=== PATIENT | female | born 1945 | race Caucasian/White ===

== ENCOUNTER → 2017-07-31 09:46 | Outpatient (CLI) | payer MEDICARE, SELFPAY ==
[2017-07-31 10:33] LABS: Cholesterol 225 mg/dL (140-199); Glucose 118 mg/dL (80-110); HDL Cholesterol 68 mg/dL (40-60); LDL Cholesterol Calculated 142 mg/dL (<100); Triglycerides 77 mg/dL (35-150)
== END ==
PROVIDERS: PCP Internal Medicine; Visit Provider Internal Medicine
DX: E03.9 Hypothyroidism, unspecified (principal); R73.01 Impaired fasting glucose; E78.5 Hyperlipidemia, unspecified
CPT/HCPCS: 36415; 80061; 82947; 83036; 84439; 84443

== ENCOUNTER → 2018-10-28 13:00 | Outpatient (CLI) | payer MEDICARE, SELFPAY ==
--- NOTE | 2018-10-28 | DI.RAD.S_ITS ---
PROCEDURE: XR HIP W PEL IF DONE RT 2V INDICATIONS: RIGHT HIP PAIN TECHNIQUE: 2 views of the hip were acquired. COMPARISON: None. FINDINGS: Bones: No fractures or dislocations. No suspicious bony lesions. The visualized pelvic ring appears intact. Scattered degenerative subchondral sclerosis and spurring. Minimal joint space narrowing Soft tissues: No suspicious soft tissue calcifications or masses. IMPRESSION: Mild right hip joint degeneration. Dictated by: Kishan Duran M.D. on 10/28/2018 at 13:43 Approved by: Kishan Duran M.D. on 10/28/2018 at 13:44
== END ==
PROVIDERS: PCP Internal Medicine; Visit Provider Internal Medicine
DX: M25.551 Pain in right hip (principal); M16.11 Unilateral primary osteoarthritis, right hip
CPT/HCPCS: 73502

== ENCOUNTER → 2018-11-04 13:10 | Outpatient (CLI) | payer MEDICARE, SELFPAY ==
--- NOTE | 2018-11-04 | DI.MRI.S_ITS ---
PROCEDURE: MR HIP RT WO CON INDICATIONS: Pain in right hip TECHNIQUE: Noncontrast coronal T1 spin echo and STIR through the bony pelvis. Coronal and axial T2 fast spin echo with fat saturation, sagittal T1 spin echo, and oblique axial T2 fast spin echo with fat saturation through the hip. COMPARISON: [facility], CR, XR HIP W PEL IF DONE RT 2V, 10/28/2018, 13:01. FINDINGS: Image quality: Excellent. Bones and joints: No acute fracture or focal osseous destruction. Levocurvature of the visualized lower lumbar spine and diffuse spondylosis. Facet arthropathy. Mild bilateral hip degeneration. Tendons and ligaments: Marked thickening, T2 hyperintensity/edema and partial tear of the gluteus medius and minimus tendons. There is stump-like appearance, which could reflect high-grade partial versus complete rupture, seen on image 10 series 4 although technically indeterminate. No definite asymmetric muscle atrophy. The iliopsoas tendon appears intact, without adjacent bursal fluid collections or evidence for impingement syndrome. The origin of the hamstring tendon is intact at the ischial tuberosity, as well as the associated sacrotuberous ligament. The straight and reflected heads of the rectus femoris muscle origin appear intact, as well as the conjoint tendon. The ligamentum teres appears intact where visualized. Labrum and cartilage: The acetabular labrum appears intact in the absence of intra-articular contrast. Cartilage surface of the femoral head appears of normal thickness. The alpha angle of the femur is within normal limits at less than 55 degrees. Soft tissues: Visualized muscles demonstrate normal bulk and internal signal. Quadratus femoris muscle demonstrates no internal edema to suggest ischiofemoral impingement. The proximal sciatic neurovascular bundle appears normal adjacent to the hamstring tendons. No free pelvic fluid. Bladder wall thickness is normal. Genitourinary structures and bowel loops appear normal where visualized. Incidental colonic diverticulosis. 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 Lower lumbar spondylosis and levoscoliosis. Dictated by: Kishan Duran M.D. on 11/04/2018 at 14:57 Approved by: Kishan Duran M.D. on 11/04/2018 at 15:16
== END ==
PROVIDERS: PCP Internal Medicine; Visit Provider Internal Medicine
DX: M25.551 Pain in right hip (principal); S76.011A Strain of muscle, fascia and tendon of right hip, initial encounter; M47.816 Spondylosis without myelopathy or radiculopathy, lumbar region; M41.86 Other forms of scoliosis, lumbar region; M16.0 Bilateral primary osteoarthritis of hip
CPT/HCPCS: 73721

== ENCOUNTER → 2019-12-08 13:37 | Outpatient (ROUT) | payer MEDICARE, SELFPAY ==
[2019-12-08 14:01] LABS: Alanine Aminotransferase 18 IU/L (<35); Albumin 4.2 g/dL (3.5-5.0); Albumin Globulin Ratio 1.6 (1.0-2.8); Alkaline Phosphatase 76 U/L (38-126); Aspartate Aminotransferase 22 IU/L (14-36); BUN Creatinine Ratio 38.2 (6-22); Bilirubin Total 0.5 mg/dL (0.2-1.3); Blood Urea Nitrogen 21 mg/dL (7-17); Carbon Dioxide 33 mmol/L (22-32); Chloride 101 mmol/L (98-107); Cholesterol 205 mg/dL (140-199); Estimated Glomerular Filt Rate > 60.0 mL/min (>60); Globulin 2.7 g/dL (1.7-4.1); Glucose 118 mg/dL (80-110); HDL Cholesterol 58 mg/dL (40-60); HEMOLYSIS < 15 (0-50); LDL Cholesterol Calculated 124 mg/dL (<100); Potassium 4.6 mmol/L (3.4-5.1); Sodium 138 mmol/L (137-145); Total Protein 6.9 g/dL (6.3-8.2); Triglycerides 116 mg/dL (35-150)
[2019-12-08 14:06] LABS: Hemoglobin A1C% w Est Avg Glu 6.3 % (4.0-6.0)
[2019-12-08 14:32] LABS: TSH w/ Reflex to FT4 0.66 uIU/mL (0.47-4.68)
== END ==
PROVIDERS: PCP Internal Medicine; Visit Provider Internal Medicine
DX: E78.5 Hyperlipidemia, unspecified (principal); E03.9 Hypothyroidism, unspecified; R73.01 Impaired fasting glucose
CPT/HCPCS: 80053; 80061; 83036; 84443

== ENCOUNTER → 2020-05-17 08:37 | Outpatient (CLI) | payer MEDICARE, SELFPAY ==
[2020-05-17 10:15] LABS: Alanine Aminotransferase 13 IU/L (<35); Albumin Globulin Ratio 1.5 (1.0-2.8); Alkaline Phosphatase 73 U/L (38-126); Aspartate Aminotransferase 19 IU/L (14-36); BUN Creatinine Ratio 28.3 (6-22); Bilirubin Total 0.4 mg/dL (0.2-1.3); Blood Urea Nitrogen 17 mg/dL (7-17); Calcium 10.2 mg/dL (8.4-10.2); Carbon Dioxide 29 mmol/L (22-32); Chloride 100 mmol/L (98-107); Cholesterol 172 mg/dL (140-199); Estimated Glomerular Filt Rate > 60.0 mL/min (>60); Globulin 2.6 g/dL (1.7-4.1); Glucose 113 mg/dL (80-110); HDL Cholesterol 57 mg/dL (40-60); HEMOLYSIS < 15 (0-50); LDL Cholesterol Calculated 102 mg/dL (<100); Potassium 4.1 mmol/L (3.4-5.1); Sodium 135 mmol/L (137-145); Total Protein 6.6 g/dL (6.3-8.2); Triglycerides 67 mg/dL (35-150)
== END ==
PROVIDERS: PCP Internal Medicine; Referring Provider Internal Medicine; Visit Provider Internal Medicine
DX: I10 Essential (primary) hypertension (principal)
CPT/HCPCS: 36415; 80053; 80061

== ENCOUNTER → 2021-04-03 16:13 | Outpatient (CLI) | payer MEDICARE, SELFPAY | PROVIDERS: PCP Internal Medicine; Visit Provider Nurse Practitioner Family | DX: R30.0 Dysuria (principal) | CPT/HCPCS: 87077; 87086; 87186 ==

== ENCOUNTER → 2022-09-25 10:24 | Outpatient (CLI) | payer MEDICARE, SELFPAY ==
[2022-09-25 11:31] LABS: Hematocrit 40.6 % (36-46); Hemoglobin 13.9 g/dL (12.0-16.0); Mean Corpuscular HGB Conc 34.1 % (30-36); Mean Corpuscular Hemoglobin 28.9 PG (26-34); Mean Corpuscular Volume 84.6 fL (80-100); Platelet Count 324 X10^3/uL (150-400); Red Cell Distribution Width 12.8 % (11.6-14.8)
[2022-09-25 12:05] LABS: Alanine Aminotransferase 23 IU/L (<35); Albumin 4.3 g/dL (3.5-5.0); Albumin Globulin Ratio 1.5 (1.0-2.8); Alkaline Phosphatase 73 U/L (38-126); Aspartate Aminotransferase 26 IU/L (14-36); BUN Creatinine Ratio 31.6 (6-22); Bilirubin Total 0.7 mg/dL (0.2-1.3); Blood Urea Nitrogen 18 mg/dL (7-17); Calcium 9.5 mg/dL (8.4-10.2); Carbon Dioxide 30 mmol/L (22-32); Chloride 100 mmol/L (98-107); Cholesterol 132 mg/dL (140-199); Estimated Glomerular Filt Rate > 60 mL/min (>60); Globulin 2.9 g/dL (1.7-4.1); Glucose 115 mg/dL (80-110); HDL Cholesterol 55 mg/dL (40-60); HEMOLYSIS < 15 (0-50); LDL Cholesterol Calculated 64 mg/dL (<100); Potassium 4.2 mmol/L (3.4-5.1); Sodium 135 mmol/L (137-145); Total Protein 7.2 g/dL (6.3-8.2); Triglycerides 66 mg/dL (35-150)
[2022-09-25 12:26] LABS: TSH w/ Reflex to FT4 0.08 uIU/mL (0.47-4.68)
[2022-09-25 13:31] LABS: Free T4, Direct Thyroxine 1.88 ng/dL (0.78-2.19)
[2022-09-26 06:07] LABS: Labcorp Hemoglobin (Hb) A1c 6.6 % (4.8-5.6)
== END ==
PROVIDERS: PCP Internal Medicine; Referring Provider Internal Medicine; Visit Provider Internal Medicine
DX: E03.9 Hypothyroidism, unspecified (principal); E78.2 Mixed hyperlipidemia; I10 Essential (primary) hypertension; I25.10 Atherosclerotic heart disease of native coronary artery without angina pectoris; I49.1 Atrial premature depolarization; R73.01 Impaired fasting glucose
CPT/HCPCS: 36415; 80053; 80061; 83036; 84439; 84443; 85027

== ENCOUNTER → 2023-04-01 07:22 | Outpatient (CLI) | payer MEDICARE, SELFPAY ==
[2023-04-01 08:10] LABS: BUN Creatinine Ratio 29.2 (6-22); Blood Urea Nitrogen 19 mg/dL (7-17); Calcium 9.9 mg/dL (8.4-10.2); Carbon Dioxide 30 mmol/L (22-32); Chloride 97 mmol/L (98-107); Cholesterol 151 mg/dL (140-199); Estimated Glomerular Filt Rate > 60 mL/min (>60); Glucose 122 mg/dL (80-110); HDL Cholesterol 58 mg/dL (40-60); HEMOLYSIS < 15 (0-50); LDL Cholesterol Calculated 73 mg/dL (<100); Potassium 4.1 mmol/L (3.4-5.1); Sodium 134 mmol/L (137-145); Triglycerides 101 mg/dL (35-150)
[2023-04-01 08:38] LABS: TSH w/ Reflex to FT4 3.14 uIU/mL (0.47-4.68)
[2023-04-01 11:11] LABS: Creatinine Urine Random 66.3 mg/dL
[2023-04-01 11:16] LABS: Microalbumi Creatinin Ratio Ur 63.3 ug/mg CR (<30); Microalbumin Urine Random 4.2 mg/dL (0-1.6)
[2023-04-03 11:26] LABS: x Labcorp Estim. Avg Glu (eAG) 126 mg/dL (.)
== END ==
PROVIDERS: PCP Internal Medicine; Referring Provider Internal Medicine; Visit Provider Internal Medicine
DX: E03.9 Hypothyroidism, unspecified; R73.01 Impaired fasting glucose; E78.2 Mixed hyperlipidemia
CPT/HCPCS: 36415; 80048; 80061; 82043; 82570; 83036; 84443

== ENCOUNTER → 2024-01-18 11:16 | Outpatient (CLI) | payer MEDICARE, SELFPAY ==
[2024-01-18 11:56] LABS: Hemoglobin A1C% w Est Avg Glu 6.1 % (4.0-6.0)
[2024-01-18 12:12] LABS: BUN Creatinine Ratio 31.7 (6-22); Blood Urea Nitrogen 20 mg/dL (7-17); Calcium 9.6 mg/dL (8.4-10.2); Carbon Dioxide 30 mmol/L (22-32); Chloride 100 mmol/L (98-107); Estimated Glomerular Filt Rate > 60 mL/min (>60); Glucose 119 mg/dL (80-110); HEMOLYSIS < 15 (0-50); Potassium 4.2 mmol/L (3.4-5.1); Sodium 134 mmol/L (137-145)
== END ==
PROVIDERS: PCP Internal Medicine; Referring Provider Internal Medicine; Visit Provider Internal Medicine
DX: R73.01 Impaired fasting glucose (principal); E03.9 Hypothyroidism, unspecified; I10 Essential (primary) hypertension
CPT/HCPCS: 36415; 80048; 83036; 84443

== ENCOUNTER → 2024-04-13 12:35 | Outpatient (CLI) | payer MEDICARE, SELFPAY ==
--- NOTE | 2024-04-13 12:36 | DI.RAD.S_ITS ---
PROCEDURE: XR DEXA AXIAL SKELETON INDICATIONS: osteopenia COMPARISON: None. FINDINGS: Lumbar Spine: Bone mineral density 0.893 g/cm2, T score -1.4, previously -0.9. Left Femoral Neck: Bone mineral density 0.682 g/cm2, T score -1.5. Left Hip: Bone mineral density 0.763 g/cm2, T score -1.5, previously -0.2. Fracture Risk Calculation (when applicable): 10-year fracture risk of a major osteoporotic fracture 13 percent and of a hip fracture 3 percent. (T score greater or equal to -1.0 to: NORMAL) (T score from -1.1 to -2.4: OSTEOPENIA) (T score less than or equal to -2.5: OSTEOPOROSIS) IMPRESSION: Osteopenia. Follow-up guidelines as follows: Osteoporosis: Consider a repeat DEXA and Vertebral Fracture Assessment (VFA) exam in 2 years or sooner if medically necessary, to reassess this patient's status. Osteopenia: Consider a repeat DEXA in 2-3 years to reassess this patient's status, or if there is a new clinical indication. Normal: Consider a repeat DEXA in 5 years or sooner, or if there is a new clinical indication. All treatment decisions require clinical judgment and consideration of individual patient factors, including patient preferences, comorbidities, previous drug use, risk factors not captured in the FRAX model (e.g., frailty, falls, vitamin D deficiency, increased bone turnover, interval significant decline in bone density ) and possible under- or over-estimation of fracture risk by FRAX. In addition, the NOF Guide recommends that FDA-approved medical therapies be considered in postmenopausal women and men age >= 50 years with a: * Hip or vertebral (clinical or morphometric) fracture * T-score of <=-2.5 at the spine or hip * Ten-year fracture probability by FRAX of >= 3% for hip fracture or >=20% for major osteoporotic fracture. Dictated by: Bill Asif M.D. on 04/13/2024 at 16:46 Approved by: Bill Asif M.D. on 04/13/2024 at 16:47
== END ==
PROVIDERS: PCP Internal Medicine; Referring Provider Internal Medicine; Visit Provider Internal Medicine
DX: M85.89 Other specified disorders of bone density and structure, multiple sites (principal)
CPT/HCPCS: 77080

== ENCOUNTER 2024-05-02 09:00 | Day surgery (SDC) | payer MEDICARE, SELFPAY ==
--- NOTE | 2024-05-02 09:38 | EKG_ITS ---
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
[2024-05-02] MEDS: LACTATED RINGERS 1,000 ML 42 ML IV ×2 (09:43→10:00)
--- NOTE | 2024-05-02 09:53 | PM.HP.IH.1 ---
History of Present Illness History of Present Illness Date Patient Seen: 05/02/24 Chief complaint: Screening Colonoscopy [facility] Medical History Acquired hypothyroidism Allergic rhinitis Asthma, mild intermittent Coronary artery disease Essential hypertension Generalized anxiety disorder History of breast cancer Impaired fasting glucose Insomnia Mixed hyperlipidemia PAC (premature atrial contraction) Primary osteoarthritis involving multiple joints Social History details: (Bill/Max - Lewy body dementia). Smoking Status: Never smoker Meds Home Medications and Allergies Home Medications Medication Instructions Recorded Confirmed Type fluticasone propionate 50 1 spray intranasal QDAY ##0 11/17/16 04/05/24 History mcg/actuation nasal spray,suspension (Flonase Allergy Relief) cholecalciferol (vitamin D3) 25 25 mcg PO DAILY 09/25/22 04/05/24 History mcg (1,000 unit) capsule fluticasone propionate 45 2 inh inhalation BID #36 grams 09/25/22 04/05/24 Rx mcg-salmeterol 21 mcg/actuation HFA inhaler (Advair HFA) metoprolol succinate 25 mg 25 mg PO DAILY 02/27/23 04/05/24 History tablet,extended release 24 hr aspirin 81 mg capsule 81 mg PO DAILY 03/30/23 04/05/24 History doxylamine succinate 25 mg tablet 12.5 mg PO BEDTIME PRN 03/30/23 04/05/24 History melatonin 10 mg capsule 10 mg PO BEDTIME PRN 03/30/23 04/05/24 History sodium chloride 2 % eye drops 1 drp EYE-BOTH QID PRN 03/30/23 04/05/24 History sodium chloride 5 % eye ointment 1 applic EYE-BOTH BEDTIME PRN 03/30/23 04/05/24 History levothyroxine 100 mcg tablet 100 mcg PO DAILY #90 tabs 07/23/23 04/05/24 Rx escitalopram oxalate 5 mg tablet 5 mg PO DAILY #90 tabs 08/24/23 04/05/24 Rx (Lexapro) montelukast 10 mg tablet 10 mg PO DAILY #90 tabs 10/05/23 04/05/24 Rx Ventolin HFA 90 mcg/actuation 2 puff inhalation Q4-6H PRN 01/21/24 04/05/24 Rx aerosol inhaler (albuterol sulfate) shortness of breath or wheezing #18 grams rosuvastatin 20 mg tablet 20 mg PO DAILY 04/05/24 04/05/24 History sodium,potassium,mag sulfates 17.5 See Rx Instructions PO .COMPLEX 04/20/24 Rx gram-3.13 gram-1.6 gram oral soln #354 mL (Suprep Bowel Prep Kit) Allergies Allergy/AdvReac Type Severity Reaction Status Date / Time lodine AdvReac Severe worsening Uncoded 05/02/24 09:35 asthma symptoms Exam Narrative Exam Narrative: Oropharynx free of lesions Chest clear to auscultation percussion Cardiac exam reveals no S3 or murmur Assessment & Plan Assessment & Plan narrative: Screening colonoscopy. Risks, benefits, alternatives have been explained. Time-Based Coding :: [TOTAL MINUTES] spent with patient and on the chart (including review of chart, obtaining history, exam, reviewing outside data, placing orders, documenting exam and treatment plan, and counseling patient) on [DATE]. [employer]ceiving [employer] Document charge(s): No
--- NOTE | 2024-05-02 09:54 | PM.OP.COLON ---
Operative Date/Time/Diagnoses Date of procedure: 05/02/24 Pre-op diagnosis: See indication and findings Procedure & Clinicians Study performed: Colonoscopy Same procedure as scheduled: No Indications: Screening Surgeon: Asa Zamudio Procedure Notes Procedure in detail: After informed consent was obtained the patient was placed in left lateral decubitus position. The video colonoscope was introduced the rectum slowly advanced cecum. Preparation was good. On slow withdrawal mucosa was carefully examined. The scope was removed. The patient tolerated procedure well. Blood loss none Complications none Sedation mac Findings 1. Extensive sigmoid diverticulosis 2. Otherwise negative colonoscopy to cecum This should be the last colonoscopy for the patient.
[2024-05-02 10:01] VITALS: BP 157/86; PULSE 60; RESP 16; TEMP 36.2; O2SAT 97
--- NOTE | 2024-05-02 10:01 | EKG_ITS ---
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
[2024-05-02 10:53] VITALS: BP 96/46; PULSE 59; RESP 16; TEMP 36.1; O2SAT 97
[2024-05-02 10:58] VITALS: BP 107/50; PULSE 56; RESP 23; O2SAT 98
[2024-05-02 11:03] VITALS: BP 124/57; PULSE 60; RESP 20; TEMP 36.3; O2SAT 98
[2024-05-02 11:06] VITALS: BP 125/63; PULSE 68; RESP 22; O2SAT 96
== END 2024-05-02 11:20 | disposition home or self-care (01) ==
PROVIDERS: PCP Internal Medicine; Referring Provider Internal Medicine Gastroenterology; Visit Provider Internal Medicine Gastroenterology
PROC: 0DJD8ZZ Inspection of Lower Intestinal Tract, Via Natural or Artificial Opening Endoscopic (ICD-10-PCS; CPT 45378; principal; 2024-05-02 10:00)
DX: Z12.11 Encounter for screening for malignant neoplasm of colon (principal); K57.30 Diverticulosis of large intestine without perforation or abscess without bleeding
CPT/HCPCS: G0121; 82962; 93005; 93010; J2704